=== PATIENT | female | born 1995 | race Native Hawaiian/Other Pacific Islander ===

== ENCOUNTER 2020-03-27 07:03 | Outpatient (CLI) | payer OTHER ==
--- NOTE | 2020-03-29 09:35 | MRI Report ---
PROCEDURE: Brain W/WO INDICATIONS: VISION LOSS, LOSS OF STRENGTH IN THE LE CONTRAST: IV CONTRAST: Gadavist ml: 6 TECHNIQUE: Noncontrast axial T1 spin echo, axial T2 fast spin echo, sagittal and axial FLAIR, coronal T2 fast sp in echo, axial gradient echo, axial diffusion and ADC through the brain. After the administration of contrast, axial and coronal T1 spin echo with fat saturation through the brain. COMPARISON: 03/30/2017 and 12/19/2016. FINDINGS: Image quality: Excellent. CSF spaces: Basal cisterns are patent. There is a 3.3 x 2.2 x 2.5 cm extra-axial fluid collection in the right cerebellomedullary cistern which is stable in size and contour compared to prior exams obt ained 02/16/2018 and 12/19/2016. Lesion demonstrates fluid signal on all sequences without restricted d iffusion and with absence of associated postcontrast enhancement. Lesion has imaging characteristics compatible with arachnoid cyst. Arachnoid cyst continues to produce mild mass effect on the right lat eral margin of the medulla in the anterior-inferior margin of the right cerebellar hemisphere. Ventri cles are normal in size and shape. Brain: No midline shift. No intracranial bleeds or masses. No abnormal intracranial enhancement. There is cerebral volume loss for age. There is periventricular white matter chronic small vessel is chemic change. The brainstem appears normal. Diffusion-weighted images demonstrate no acute ischemi c insults. No chronic ischemic insults. Normal intravascular flow voids are present. Skull and face: Calvarial marrow is normal in signal. Orbits appear normal. Sinuses: Sinuses and mastoids appear clear. IMPRESSION: 1. No acute intracranial disease process. 2. No areas of acute or chronic infarction. 3. Arachnoid cyst involving the right lateral cerebellomedullary cistern is stable compared to prior exams. Reviewed by: Ashlee Waters MD, PhD on 03/29/2020 9:34 AM PST Approved by: Ashlee Waters MD, PhD on 03/29/2020 9:34 AM PST Station ID: [id number]
== END 2020-03-27 07:04 | disposition home or self-care (01) ==
LOC: DI 07:03
DX: G93.0 Cerebral cysts (principal)
CPT/HCPCS: 70553; A9585